=== PATIENT | female | born 1950 | race Caucasian/White ===

== ENCOUNTER 2021-03-18 05:10 | Observation (INO) | payer SELFPAY ==
[~2021-03-18] VITALS: Ht 165.1 cm; Wt 60.2 kg
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
[2021-03-18] MEDS ORDERED: CICL6.1H4 INH (06:32)
[2021-03-18] MEDS ORDERED: ALBU18HF INH (06:33)
[2021-03-18] MEDS ORDERED: LISI-170 PO (06:33)
[2021-03-18] MEDS ORDERED: LORA-445 PO (06:33)
[2021-03-18] MEDS ORDERED: ATOR40TA78 PO (06:33)
[2021-03-18] MEDS ORDERED: DOXY50CA42 PO (06:33)
[2021-03-18] MEDS ORDERED: FURO20TA3 PO (06:33)
[2021-03-18] MEDS ORDERED: PARO10TA3 PO (06:33)
[2021-03-18] MEDS ORDERED: CARV12.5 PO (06:33)
[2021-03-18] MEDS ORDERED: [UNRECOGNIZED DRUG - OTHER] PO (06:33)
[2021-03-18] MEDS ORDERED: LANS30CA PO (06:33)
[2021-03-18] MEDS ORDERED: SPIR25TA5 PO (06:33)
[2021-03-18] MEDS ORDERED: TIOT4MIS3 INH (06:33)
[2021-03-18] MEDS ORDERED: NYST1000 PO (06:35)
--- NOTE | 2021-03-18 06:50 | NUR ---
[facility] (jennifer)- [phone]
--- NOTE | 2021-03-18 06:55 | NUR ---
REPORT GIVEN TO MARC RAMIREZ
--- NOTE | 2021-03-18 07:17 | NUR ---
report taken from MARC Vincent, pt sleeping on gurney, resps even and unlabored. no epitaxis noted. care assumed by this RN at this time.
--- NOTE | 2021-03-18 07:58 | NUR ---
pt continues to sleep on gurney, resps even and unlabored. awaiting admit room assignment.
[2021-03-18] MEDS ORDERED: ONDANSETRON ODT 4 MG PO PRN (08:00)
[2021-03-18] MEDS ORDERED: NITROGLYCERIN 0.4 MG BOTTLE (25 TABS) SL PRN (08:00)
[2021-03-18] MEDS ORDERED: TRAZODONE 50MG TABLET PO PRN (08:00)
[2021-03-18] MEDS ORDERED: CICLESONIDE 160 MCG INH SCH (09:00)
[2021-03-18] MEDS ORDERED: TEMPLATE NON-FORMULARY MED. (Tiotropium Br/Olodaterol HCl (Stiolto Respimat Inhal Spray) 2 INH SCH (09:00)
--- NOTE | 2021-03-18 09:06 | NUR ---
REPORT GIVEN TO MARC TRAN WHO IS ASSUMING CARE.
--- NOTE | 2021-03-18 09:59 | NUR ---
sbar report called to receiving MARC Carter pt transported to medical telemetry without incident.
[2021-03-18 10:16] VITALS: BP 166/82
[2021-03-18] MEDS: ATORVASTATIN 40 MG TABLET PO SCH (10:30)
[2021-03-18] MEDS: PANTOPRAZOLE 40MG TABLET PO SCH (10:30)
[2021-03-18] MEDS: PAROXETINE 10 MG TABLET PO SCH (10:30)
[2021-03-18] MEDS: DOXYCYCLINE 100MG TABLET PO SCH (10:31)
[2021-03-18] MEDS: CARVEDILOL 12.5 MG TABLET PO SCH ×2 (10:31→21:09)
[2021-03-18 10:53] VITALS: BP 154/92
[2021-03-18] MEDS: CEFDINIR 300 MG CAPSULE PO SCH ×2 (11:05→21:08)
[2021-03-18] MEDS: ACETAMINOPHEN 325 MG TABLET PO PRN ×2 (11:17→18:40)
[2021-03-18] MEDS: LORazepam 0.5MG TABLET PO PRN (11:34)
[2021-03-18] MEDS ORDERED: hydrALAzine 20 MG/ML, 1ML IV PRN (12:30)
[2021-03-18 13:45] VITALS: BP 99/63
[2021-03-18 14:18] LABS: BASOPHILS % (AUTO) 1 % (0-1); EOSINOPHILS % (AUTO) 2 % (1-7); LYMPHOCYTES % (AUTO) 22 % (22-44); MEAN CORPUSCULAR HEMOGLOBIN 33.6 pg (27.0-34.8); MEAN PLATELET VOLUME 8.1 fL (7.4-10.4); MONOCYTES % (AUTO) 10 % (2-9); NEUTROPHILS % (AUTO) 66 % (42-75); PLATELET COUNT 200 x10^3/uL (130-400)
[2021-03-18 14:22] LABS: MD NO
[2021-03-18 19:06] VITALS: BP 114/68
[2021-03-18] MEDS: ALBUTEROL SULFATE 2.5 MG/3 ML NPPB SCH (20:25)
[2021-03-18] MEDS: BUDESONIDE 0.5 MG/2 ML INHA NPPB SCH (20:25)
[2021-03-18 21:13] VITALS: BP 119/72
[2021-03-18 22:01] LABS: TROPONIN I 0.042 ng/mL (0.000-0.045)
[2021-03-19 01:05] VITALS: BP 127/72
[2021-03-19] MEDS: ACETAMINOPHEN 325 MG TABLET PO PRN ×4 (01:33→15:50)
[2021-03-19 03:50] LABS: BASOPHILS % (AUTO) 1 % (0-1); EOSINOPHILS % (AUTO) 3 % (1-7); LYMPHOCYTES % (AUTO) 23 % (22-44); MEAN CORPUSCULAR HEMOGLOBIN 33.5 pg (27.0-34.8); MEAN CORPUSCULAR HGB CONC 33.8 g/dL (32.4-35.8); MEAN PLATELET VOLUME 8.4 fL (7.4-10.4); MONOCYTES % (AUTO) 8 % (2-9); NEUTROPHILS % (AUTO) 65 % (42-75); PLATELET COUNT 188 x10^3/uL (130-400); RED BLOOD COUNT 3.64 x10^6/uL (3.82-5.3); RED CELL DISTRIBUTION WIDTH 13.1 % (9.6-15.2)
[2021-03-19 04:00] LABS: TROPONIN I 0.039 ng/mL (0.000-0.045)
[2021-03-19 04:03] LABS: MD NO
[2021-03-19 06:43] VITALS: BP 149/77
[2021-03-19] MEDS: ALBUTEROL SULFATE 2.5 MG/3 ML NPPB SCH (08:30)
[2021-03-19] MEDS: BUDESONIDE 0.5 MG/2 ML INHA NPPB SCH (08:30)
[2021-03-19] MEDS ORDERED: FUROSEMIDE 20 MG TABLET PO SCH (09:00)
[2021-03-19] MEDS ORDERED: PRASUGREL 10 MG TABLET PO SCH (09:00)
[2021-03-19] MEDS ORDERED: LISINOPRIL 10 MG TABLET PO SCH (09:00)
[2021-03-19] MEDS ORDERED: SPIRONOLACTONE 25 MG TABLET PO SCH (09:00)
[2021-03-19] MEDS: DOXYCYCLINE 100MG TABLET PO SCH (09:05)
[2021-03-19] MEDS: CEFDINIR 300 MG CAPSULE PO SCH (09:05)
[2021-03-19] MEDS: ASPIRIN 81 MG TABLET CHEW PO SCH ×3 (09:05→12:26)
[2021-03-19] MEDS: PANTOPRAZOLE 40MG TABLET PO SCH (09:06)
[2021-03-19] MEDS: CARVEDILOL 12.5 MG TABLET PO SCH (09:06)
[2021-03-19] MEDS: PAROXETINE 10 MG TABLET PO SCH (09:06)
[2021-03-19] MEDS: NYSTATIN 500,000 UNITS/5 ML UDC PO SCH ×2 (09:07→15:03)
[2021-03-19] MEDS: ATORVASTATIN 40 MG TABLET PO SCH (09:07)
[2021-03-19 09:09] VITALS: BP 146/79
[2021-03-19 14:06] VITALS: BP 115/67
[2021-03-19] MEDS ORDERED: [UNRECOGNIZED DRUG - OTHER] PO (14:12)
[2021-03-19] MEDS: LORazepam 0.5MG TABLET PO PRN (15:50)
== END 2021-03-19 15:57 | disposition home or self-care (01) ==
LOC: ED 07:35 → SUATTDRO 07:53 → EDIP 07:54 → 4WST 10:00 → DCLOUNGE 03-19 15:50
PROVIDERS: ADMIT Internal Medicine; ATTEND Internal Medicine
DX: R04.0 Epistaxis (principal); D69.9 Hemorrhagic condition, unspecified; J96.11 Chronic respiratory failure with hypoxia; I25.10 Atherosclerotic heart disease of native coronary artery without angina pectoris; J44.9 Chronic obstructive pulmonary disease, unspecified; M31.30 Wegener's granulomatosis without renal involvement; F41.8 Other specified anxiety disorders; R11.0 Nausea; I10 Essential (primary) hypertension; I73.00 Raynaud's syndrome without gangrene; M79.7 Fibromyalgia; E78.5 Hyperlipidemia, unspecified; I25.2 Old myocardial infarction; Z85.41 Personal history of malignant neoplasm of cervix uteri; Z79.899 Other long term (current) drug therapy; Z90.710 Acquired absence of both cervix and uterus; Z87.891 Personal history of nicotine dependence; Z79.02 Long term (current) use of antithrombotics/antiplatelets; Z95.5 Presence of coronary angioplasty implant and graft; Z99.81 Dependence on supplemental oxygen
CPT/HCPCS: 36415; 84484; 85025; 93005; 94640; 99284; G0378; J7613; J7626; Q0162